=== PATIENT | male | born 1965 | race Caucasian/White ===

== ENCOUNTER 2020-02-18 23:34 | Emergency (ER) | payer SELFPAY ==
--- NOTE | 2020-02-19 00:58 | ER Document Report ---
HPI - HPI Time Seen by Provider: 02/19/20 00:48 Pain Level: 4 Context: Patient is a 54-year-old male that comes to the emergency department for chief complaint of right knee injury. He states that he was getting out of bed this morning trying to get his clothes on when he lost his balance, stepped awkwardly, twisted his knee and then stumbled forward. He states when he did so he felt a pop. He denies fall injury. He states that his knee has been swelling and now the area below his knee has started swelling and he started to get some tingling sensations in his leg as well. He states it pops and hurts when he tries to walk on it. He denies any other injuries. He is not on a blood thinner, takes no daily medications. He denies back pain, incontinence, or any other complaints. - REPRODUCTIVE Reproductive: DENIES: : Past Medical History - General Information source: Patient - Social History Smoking Status: Never Smoker Chew tobacco use (# tins/day): Yes Frequency of alcohol use: None Drug Abuse: None Lives with: Family Family History: Reviewed & Not Pertinent Patient has homicidal ideation: No - Medical History Medical History: Negative - Immunizations Immunizations up to date: Yes Hx Diphtheria, Pertussis, Tetanus Vaccination: Yes Vertical Provider Document - CONSTITUTIONAL General Appearance: WD/WN, No Apparent Distress - HEENT HEENT: Atraumatic, Normocephalic - NECK Neck: Normal Inspection - RESPIRATORY Respiratory: Breath Sounds Normal, No Respiratory Distress - CARDIOVASCULAR Cardiovascular: Regular Rate, Regular Rhythm - GI/ABDOMEN Gastrointestinal: Abdomen Soft, Abdomen Non-Tender - BACK Back: Normal Inspection - MUSCULOSKELETAL/EXTREMETIES Musculoskeletal/Extremeties: MAEW, FROM, Tender - There is tenderness around the right knee diffusely with some mild soft tissue swelling, range of motion is intact but painful. Calf is unremarkable, thigh is unremarkable, hip and ankle exams are unremarkable, normal distal neurovascular exam, normal distal pulses. No discoloration. No severe pain on proportion suggesting compartment syndrome. Course - Re-evaluation Re-evalutation: Patient did not actually have trauma to the knees, just a twisting injury. Normal distal neurovascular exam. X-ray shows joint effusion in the knee but no bony abnormalities. I suspect patient had a cruciate ligament injury based on his mechanism, swelling, effusion. I discussed this with patient. Patient placed in knee immobilizer, discussed importance of orthopedic follow-up, discussed treatment at home, discussed return precautions. Patient states understanding and agreement. - Vital Signs Vital signs: Temp Pulse Resp BP Pulse Ox 97.8 F 78 15 132/86 H 99 02/19/20 00:07 02/19/20 00:07 02/19/20 00:07 02/19/20 00:07 02/19/20 00:07 Procedures - Immobilization Right knee Pre-Proc Neuro Vasc Exam: Normal Immobilizer type: Knee immobilizer Performed by: PCT Post-Proc Neuro Vasc Exam: Normal Alignment checked and good: Yes Discharge - Discharge Clinical Impression: Knee effusion, right, Swelling of right knee joint Right knee injury Qualifiers: Encounter type: initial encounter Qualified Code(s): S89.91XA - Unspecified injury of right lower leg, initial encounter Condition: Stable Disposition: HOME, SELF-CARE Additional Instructions: Your x-ray does not show a fracture but does show fluid in the knee (and effusion). Based on your injury and your imaging along with your exam I strongly suspect that you have a torn ligament in your knee. Rest the knee, ice, elevate, wear the knee immobilizer, use the crutches to walk. Take the anti-inflammatory as prescribed. It is important that you follow-up with orthopedics for additional management, call the listed referral tomorrow for your follow-up. Return for any concerning symptoms including severe worsening pain or swelling, or any other concerning symptoms. Prescriptions: Naproxen 500 mg PO BID PRN #20 tablet PRN Reason: Forms: Return to Work Referrals: OTONIEL BELTRÁN MD [ACTIVE STAFF] - Follow up in 3-5 days
--- NOTE | 2020-02-19 01:02 | RADIOLOGY REPORT (SQ) ---
CLINICAL INDICATION: INJURY. Pain. TECHNIQUE: 4 view(s) were obtained of the right knee. COMPARISON: None. FINDINGS: No acute displaced fracture is identified of the knee. Alignment appears anatomic. Osteoarthritis. Moderate joint effusion. Surrounding soft tissues are unremarkable. IMPRESSION: No evidence of acute displaced fracture of the knee. Moderate joint effusion
[2020-02-19 02:01] VITALS: BP 136/83
== END 2020-02-19 01:50 | disposition home or self-care (01) ==
LOC: ER 23:34
DX: S89.91XA Unspecified injury of right lower leg, initial encounter (principal); M25.461 Effusion, right knee; X50.0XXA Overexertion from strenuous movement or load, initial encounter; F17.220 Nicotine dependence, chewing tobacco, uncomplicated
CPT/HCPCS: 99283